=== PATIENT | female | born 1945 | race Caucasian/White ===

== ENCOUNTER → 2018-08-26 11:17 | Outpatient (CLI) | payer SELFPAY | PROVIDERS: Visit Provider Obstetrics & Gynecology | DX: N39.0 Urinary tract infection, site not specified (principal) | CPT/HCPCS: 87086; 87088 ==

== ENCOUNTER → 2023-08-04 | Outpatient (CLI) | payer SELFPAY ==
--- NOTE | 2023-08-04 11:14 | US_ITS ---
STUDY: ULTRASOUND OF THE FEMALE PELVIS - COMPLETE REASON FOR EXAM: Female, 77 years old. AUB LMP: Menopause TECHNIQUE: Transabdominal TECHNICAL QUALITY: Adequate. COMPARISON: None. FINDINGS: The uterus is anteverted and is in a midline position. The uterus measures 6.5 x 5.1 x 3.4 cm. Normal uterine cervix. The endometrium measures 5 mm in thickness, and is hyperechoic. There is no demonstrated endometrial mass. Echogenic foci within the myometrium may represent calcified degenerated fibroids. I.U.D. - The patient does not have an I.U.D. The right ovary is non-visualized.. The left ovary is non-visualized.. There is no fluid in the cul-de-sac. The pre void volume of the bladder was 246 ml. The post void volume of the bladder was ml. Polycystic ovary disease: No. US/Pelvic (Non ) IMPRESSION: Suspect calcified degenerated fibroids but overall normal size of the uterus. Electronically Signed: Alvin Vogel MD at 21:04 EST ,
== END | disposition home or self-care (01) ==
PROVIDERS: PCP Urology; Referring Provider Urology; Visit Provider Urology
DX: N93.9 Abnormal uterine and vaginal bleeding, unspecified (principal)
CPT/HCPCS: 76856

== ENCOUNTER → 2023-09-24 | Outpatient (CLI) | payer SELFPAY ==
--- NOTE | 2023-09-24 | EMB_PTH ---
PATHOLOGY RESULTS PATIENT: CALLIE JOHNSON LOC: [facility] U#:[id number] AGE/SX: 78/F ROOM: RE09/24/[address]: Dr. Jamee Meyer MD : 1945 BED: DIS: 09/24/2023 SPEC #: [id number] RECD: 09/25/23 08:06 STATUS: ELENITA MANZANO #: [id number] DONNA: 09/24/23 00:[address]: Jamee Meyer DEPT: SURGICAL PATHOLOGY RECD BY: Micki Campbell ENTERED: 09/25/23 08:06 SP TYPE: ENDOM BX/C GABRIELLE DR: Dr. Enriqueta Jimenez MD Tissues: Endometrium, NOS Procedures: Surgery Specimen Level IV HEADER OPERATION: Endometrial biopsy PRE-OP DIAGNOSIS: Abnormal uterine bleeding TISSUE SUBMITTED: Endometrial biopsy MICROSCOPIC DIAGNOSIS Endometrial biopsy: Strips of benign endometrial epithelium. Desquamated benign squamous epithelial cells and mucous. See comment. SJ:sampson 09/26/2023 COMMENT The specimen predominantly consists of mucoid tissue. MICROSCOPIC DESCRIPTION Slides are reviewed. GROSS DESCRIPTION Received is one container labeled with the patient's name and not further designated. The specimen consists of multiple irregular fragments of garsia mucoid tissue that in aggregate measure 2.5 x 2.0 x 0.1 cm. The specimen is totally submitted in one cassette. / MARLENY:sampson 09/25/2023 TC:5 CPT: 90455
== END | disposition home or self-care (01) ==
PROVIDERS: PCP Urology; Referring Provider Obstetrics & Gynecology; Visit Provider Obstetrics & Gynecology
DX: N93.9 Abnormal uterine and vaginal bleeding, unspecified (principal)
CPT/HCPCS: 88305

== ENCOUNTER → 2025-04-28 | Outpatient (CLI) | payer SELFPAY, OTHER ==
--- NOTE | 2025-04-28 10:30 | MRI_ITS ---
PROCEDURE: LOWER EXT JOINT ONLY (ROUTINE) 04/28/2025 REASON FOR EXAM: PAIN TECHNIQUE: LOWER EXT JOINT ONLY (ROUTINE) Multiplanar and multisequence images were obtained without IV contrast administration. 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 Cruciate ligaments: There is a edema and attenuation throughout the anterior cruciate ligament without laxity, grade 2 sprain. The posterior cruciate appears intact. Collateral ligaments: There is a edema and thickening in the mid and upper portion of the medial collateral ligament without laxity, grade 2 sprain. The lateral collateral ligament complex appears intact. Menisci: There is a complex tear and degeneration of the medial meniscus with extrusion. The lateral meniscus appears intact. Extensor mechanism: There is moderate distal quadriceps tendinopathy without tear. The patellar tendon appears intact. Effusion: There is a small joint effusion. There is a 0.7 x 0.2 cm Matthew's cyst. 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 MRI/Lower Ext Joint Only (Routine) IMPRESSION: There are multiple developing osteochondral defects in the medial femoral condy le with the largest measuring 1.2 cm with marrow edema throughout the medial femoral condyle extending to the metaphyseal region . There is a edema and attenuation throughout the anterior cruciate ligament with out laxity, grade 2 sprain. There is a edema and thickening in the mid and upper portion of the medial sukhi ateral ligament without laxity, grade 2 sprain. There is a complex tear and degeneration of the medial meniscus with extrusion. There is moderate distal quadriceps tendinopathy without tear. There is a small joint effusion. There is a 0.7 x 0.2 cm Matthew's cyst. 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 Reading Location: [id number]
== END | disposition home or self-care (01) ==
PROVIDERS: PCP Family Medicine; Referring Provider Orthopaedic Surgery; Visit Provider Orthopaedic Surgery
DX: M25.562 Pain in left knee (principal); M17.12 Unilateral primary osteoarthritis, left knee
CPT/HCPCS: 73721